=== PATIENT | male | born 1940 | race Caucasian/White ===

== ENCOUNTER 2019-07-22 06:39 | Inpatient (IN) | payer MEDICARE, OTHER ==
[2019-07-13 13:20] LABS: BASOPHILS # (AUTO) 0.1 X10'3 (0-0.2); BASOPHILS % (AUTO) 0.7 % (0-1); EOSINOPHILS # (AUTO) 0.2 X10'3 (0-0.9); EOSINOPHILS % (AUTO) 2.6 % (0-6); LYMPHOCYTES # (AUTO) 1.3 X10'3 (1.1-4.8); LYMPHOCYTES % (AUTO) 17.5 % (21-51); MEAN CORPUSCULAR HEMOGLOBIN 30.1 PG (27.0-31.0); MEAN CORPUSCULAR HGB CONC 33.5 g/dL (33.0-36.5); MEAN CORPUSCULAR VOLUME 89.8 FL (78-98); MEAN PLATELET VOLUME 8.5 FL (7.4-10.4); MONOCYTES # (AUTO) 0.8 X10'3 (0-0.9); MONOCYTES % (AUTO) 9.9 % (2-12); NEUTROPHILS # (AUTO) 5.3 X10'3 (1.8-7.7); NEUTROPHILS % (AUTO) 69.3 % (42-75); PRE OP HEMATOCRIT 44.1 % (42.0-52.0); PRE OP HEMOGLOBIN 14.8 g/dL (14.0-17.9); PRE OP PLATELET COUNT 198 X10'3 (140-440); RED BLOOD COUNT 4.92 X10'6 (4.70-6.10); RED CELL DISTRIBUTION WIDTH 14.6 % (11.5-14.5)
[2019-07-13 13:45] LABS: ALBUMIN 4.3 G/DL (3.4-5.0); ALBUMIN/GLOBULIN RATIO 1.2 (1.1-1.5); ALKALINE PHOSPHATASE 75 IU/L (46-116); BLOOD UREA NITROGEN 29 MG/DL (7-18); BUN/CREATININE RATIO 18.5 (5.4-32.0); CALCIUM 10.2 MG/DL (8.5-10.1); CHLORIDE 106 MMOL/L (99-107); CREATININE 1.57 MG/DL (0.60-1.10); PRE OP ALT 13 U/L (30-65); PRE OP ANION GAP 9 (8-16); PRE OP AST 17 U/L (10-37); PRE OP BILIRUB, TOTAL 0.9 MG/DL (0.0-1.0); PRE OP GLUCOSE 117 MG/DL (70-104); PRE OP SODIUM 145 MMOL/L (135-145); eGFR 43 ML/MIN
[2019-07-13 13:49] LABS: PRE OP POTASSIUM 3.3 MMOL/L (3.4-5.1)
[~2019-07-22] VITALS: Ht 167.6 cm; Wt 88.0 kg
[2019-07-22] VITALS (19 sets, daily range): BP systolic 117–194; BP diastolic 52–91
[~2019-07-22 06:39] MED LIST: ALLO300T2 PO; CLOP75TA33 PO; HYDR25TA4 PO; SIMV-45 PO; cefazolin/dext.iso 2gm/100ml 100 ML IV ONE; famotidine 20mg tablet PO ONE; ringers solution, lacted 1,000 ML IV SCH; tranexamic acid inj. 810 MG in normal saline 100ml IV soln 100 ML IV ONE; vancomycin inj 1,500 MG in normal saline 300ml IV soln IV ONE
[2019-07-22] MEDS ORDERED: ketorolac trometh. 30mg/ml inj. ONE (09:58)
[2019-07-22] MEDS ORDERED: ROPIVAcaine 0.5% (5mg/ml) 30ml vial ONE ×2 (09:58→12:25)
[2019-07-22] MEDS ORDERED: MIDAZolam 5mg/5ml vial ONE (10:13)
[2019-07-22] MEDS ORDERED: fentaNYL/PF 50MCG/1 ML 2ML syringe ONE (10:13)
[2019-07-22] MEDS ORDERED: sevoflurane 250ml liquid IH ONE (10:41)
[2019-07-22] MEDS ORDERED: tranexamic acid inj. 810 MG in normal saline 100ml IV soln 100 ML IV ONE ×2 (11:35→16:50)
[2019-07-22] MEDS ORDERED: ringers solution, lacted 1,000 ML IV SCH (12:17)
[2019-07-22] MEDS ORDERED: ROPIVAcaine 0.2% (10 MG/5 ML) BOLUS INJECTION INTERSCALE PRN (12:20)
[2019-07-22] MEDS ORDERED: HYDROmorphone inj. 0.5 MG/0.5 ML DISP.SYRIN IV PRN ×2 (12:20→12:50)
[2019-07-22] MEDS ORDERED: morphine 4 MG/ML inj SYRINge IV PRN (12:20)
[2019-07-22] MEDS ORDERED: ondansetron/PF 4mg/2ml inj IV PRN ×2 (12:20→12:50)
[2019-07-22] MEDS ORDERED: ondansetron/PF 4mg/2ml inj ONE (12:25)
[2019-07-22] MEDS ORDERED: glycopyrrolate 0.2mg/ml inj ONE (12:25)
[2019-07-22] MEDS ORDERED: propofol inj 20 ML IV ONE (12:25)
[2019-07-22] MEDS ORDERED: dexamethasone sod phosphate 4mg/ml inj. ONE (12:25)
[2019-07-22] MEDS ORDERED: LIDOcaine 1%/PF 5ML 10 MG/ML VIAL ONE (12:25)
[2019-07-22] MEDS ORDERED: magnesium hydroxide 30ml (MOM) UD suspension PO PRN (12:50)
[2019-07-22] MEDS ORDERED: acetaminophen 325mg tablet PO PRN (12:50)
[2019-07-22] MEDS ORDERED: HYDROmorphone 1 mg/ml syringe IV PRN (12:50)
[2019-07-22] MEDS ORDERED: bisacodyl 10mg suppository rectal RC PRN (12:50)
[2019-07-22] MEDS ORDERED: oxyCODONE IR 5mg (immed. release) tablet PO PRN ×2 (12:50)
[2019-07-22] MEDS ORDERED: diphenhydrAMINE 25mg capsule PO PRN ×2 (12:50)
--- NOTE | 2019-07-22 12:50 | NUR ---
Received from OR via BED , accompanied by Anesthesiologist DR QUISPE and report given by Anesthesiolgist. PATIENT WAKING UP, DENIES PAIN, V/S WNL, NEUROVASCULAR CHECKS INTACT, 20G PIV LUE ,RIGHT SHOULDER DRESSING CDI WITH COLD POWDER PACK AND SLING. AWAITING ON-Q DELIVERY FROM PHARMACY
--- NOTE | 2019-07-22 13:19 | NUR ---
received report from [facility] in recovery. Anticipate pt arrival to [facility] soon
[2019-07-22] MEDS ORDERED: hydrALAZINE 20mg/ml inj. IV ONE ×2 (13:40→13:41)
--- NOTE | 2019-07-22 14:00 | NUR ---
PATIENT A&OX4, DENIES PAIN, V/S WNL, NEUROVASCULAR CHECKS INTACT, 20G PIV LUE ,RIGHT SHOULDER DRESSING CDI WITH COLD POWDER PACK AND SLING. ON-Q AT 4ML/HR. PATIENT TAKEN TO [facility] WITH ALL BELONGINGS AND HOOKED UP TO MONITORS IN ROOM AND REPORT GIVEN TO DIRECTOR OF BANDS WHO HAS TAKEN OVER PATIENT CARE.
[2019-07-22] MEDS ORDERED: ROPIVAcaine 0.2%/PF PUMP/bolus 550 ML INTERSCALE SCH (15:30)
[2019-07-22] MEDS: ceFAZolin 1GM/D5W- ADD-VANTAGE 50 ML IV SCH ×2 (16:38→23:56)
[2019-07-22] MEDS: acetaminophen 325mg tablet PO SCH ×2 (16:51→21:01)
[2019-07-22] MEDS: potassium cl 20mEq in 1/2 NS 1,000 ML IV SCH ×2 (17:40→20:47)
[2019-07-22] MEDS ORDERED: vancomycin/NS 1 GM ADD-VANTAGE 250 ML IV SCH (20:00)
[2019-07-22] MEDS ORDERED: sennosides 8.6mg tablet PO SCH (21:00)
[2019-07-23 02:00] VITALS: BP 121/58
[2019-07-23] MEDS: acetaminophen 325mg tablet PO SCH ×2 (02:00→09:39)
[2019-07-23] MEDS: potassium cl 20mEq in 1/2 NS 1,000 ML IV SCH (04:47)
[2019-07-23 06:00] VITALS: BP 126/57
[2019-07-23 06:30] LABS: ANION GAP 8 (8-16); CHLORIDE 108 MMOL/L (99-107); POTASSIUM 4.3 MMOL/L (3.5-5.1); SODIUM 141 MMOL/L (135-145); TOTAL CARBON DIOXIDE 25.1 MMOL/L (24-32)
[2019-07-23 06:46] LABS: BASOPHILS % (AUTO) 0.2 % (0-1); EOSINOPHILS % (AUTO) 0.1 % (0-6); HEMATOCRIT 40.4 % (42.0-52.0); HEMOGLOBIN 13.5 g/dl (14.0-17.9); LYMPHOCYTES % (AUTO) 9.3 % (21-51); MEAN CORPUSCULAR HEMOGLOBIN 30.3 PG (27.0-31.0); MEAN CORPUSCULAR HGB CONC 33.5 g/dL (33.0-36.5); MEAN CORPUSCULAR VOLUME 90.6 FL (78-98); MEAN PLATELET VOLUME 9.7 FL (7.4-10.4); MONOCYTES % (AUTO) 9.2 % (2-12); NEUTROPHILS % (AUTO) 81.2 % (42-75); PLATELET COUNT 204 X10'3 (140-440); RED BLOOD COUNT 4.46 X10'6 (4.70-6.10); RED CELL DISTRIBUTION WIDTH 14.6 % (11.5-14.5); WHITE BLOOD COUNT 11.1 X10'3 (4.5-11.0)
[2019-07-23] MEDS ORDERED: HYDROchlorothiazide 25mg tablet PO SCH (08:00)
[2019-07-23] MEDS ORDERED: allopurinol 300 MG tablet PO SCH (08:00)
[2019-07-23] MEDS ORDERED: clopidogrel 75mg tablet PO SCH (08:00)
[2019-07-23] MEDS ORDERED: aspirin 325mg tablet PO SCH (08:30)
[2019-07-23 09:56] VITALS: BP 150/71
[2019-07-24] MEDS ORDERED: acetaminophen 325mg tablet PO PRN (12:50)
--- NOTE | 2019-07-25 16:21 | NUR ---
Case management DC follow up: spoke to pt and pt spouse, Shellie. reports pt, "feels okay". pt is ambulating as tolerated. has trouble sleeping, r/t discomfort, uses recliner to rest, sleep in. reports a little bit of swelling, agreed to elevate hand w/pillows. verbalizes understanding of meds and why prescribed, taking as ordered, no ase noted. Denies SOB, resp distress, cp, acute general pain, NV, dizziness, abd pain, REYNOLDS. pt remains afebrile. No s/s infection noted. Pt verbalizes understanding of s/s that would warrant 9-/ER visit for evaluation. pt will be calling Dr Monterroso office regarding after care instructions not being sent w/DC packet. Educated pt on basics for aftercare. pt does not feel comfortable removing pain pump from pt "neck" and will be going into Dr Monterroso office to have removed tomorrow 07/26/2019. pt did not know where to place ice pack, called office and was directed where to place ice pack through opening of the shoulder wrap/sling. No education/demonstration provided at DC per pt and pt spouse. No aftercare instructions printed and placed in DC packet. pt and spouse were very nice and just needed some guidance and support.
== END 2019-07-23 11:24 | disposition home or self-care (01) | DRG 483 ==
LOC: PAS IN 06:39 → EDSTATUS 11:00 → ORTHO 4S 14:05
PROVIDERS: ADMIT Orthopaedic Surgery; ATTEND Orthopaedic Surgery
PROC: 0LS30ZZ Reposition Right Upper Arm Tendon, Open Approach (ICD-10-PCS; 2019-07-22)
PROC: 3E0T3BZ Introduction of Anesthetic Agent into Peripheral Nerves and Plexi, Percutaneous Approach (ICD-10-PCS; 2019-07-22)
PROC: 0RRJ00Z Replacement of Right Shoulder Joint with Reverse Ball and Socket Synthetic Substitute, Open Approach (ICD-10-PCS; principal; 2019-07-22 10:41)
DX: M75.121 Complete rotator cuff tear or rupture of right shoulder, not specified as traumatic (principal); D62 Acute posthemorrhagic anemia; M25.511 Pain in right shoulder; M19.011 Primary osteoarthritis, right shoulder; M10.9 Gout, unspecified; I10 Essential (primary) hypertension; I25.10 Atherosclerotic heart disease of native coronary artery without angina pectoris; M65.811 Other synovitis and tenosynovitis, right shoulder; Z95.5 Presence of coronary angioplasty implant and graft; Z79.899 Other long term (current) drug therapy
CPT/HCPCS: 36415; 80051; 80053; 82948; 85025; 87081; 93005; 97110; 97161; 97530; A4215; A4565; A4618; A7000; C1776; G0378; J0360; J0690; J1100; J1885; J2250; J2405; J2704; J2795; J3010; J3370; J3480; J3490; J7120

== ENCOUNTER 2021-05-24 05:25 | Day surgery (SDC) | payer MEDICARE, OTHER ==
[2021-05-17 15:48] LABS: BASOPHILS # (AUTO) 0.1 X10'3 (0-0.2); BASOPHILS % (AUTO) 1.1 % (0-1); EOSINOPHILS # (AUTO) 0.1 X10'3 (0-0.9); EOSINOPHILS % (AUTO) 2.1 % (0-6); LYMPHOCYTES # (AUTO) 1.1 X10'3 (1.1-4.8); LYMPHOCYTES % (AUTO) 22.9 % (21-51); MEAN CORPUSCULAR HEMOGLOBIN 30.5 PG (27.0-31.0); MEAN CORPUSCULAR HGB CONC 33.4 g/dL (33.0-36.5); MEAN CORPUSCULAR VOLUME 91.3 FL (78-98); MEAN PLATELET VOLUME 8.7 FL (7.4-10.4); MONOCYTES # (AUTO) 0.7 X10'3 (0-0.9); MONOCYTES % (AUTO) 15.5 % (2-12); NEUTROPHILS # (AUTO) 2.7 X10'3 (1.8-7.7); NEUTROPHILS % (AUTO) 58.4 % (42-75); PRE OP HEMATOCRIT 38.4 % (42.0-52.0); PRE OP HEMOGLOBIN 12.8 g/dL (14.0-17.9); PRE OP PLATELET COUNT 196 X10'3 (140-440); RED CELL DISTRIBUTION WIDTH 14.6 % (11.5-14.5)
[2021-05-17 16:01] LABS: PRE OP PROTIME 10.5 SECONDS (9.0-12.0)
[2021-05-17 16:17] LABS: ALBUMIN 3.9 G/DL (3.4-5.0); ALBUMIN/GLOBULIN RATIO 1.1 (1.1-1.5); ALKALINE PHOSPHATASE 76 IU/L (46-116); BLOOD UREA NITROGEN 26 MG/DL (7-18); BUN/CREATININE RATIO 16.7 (5.4-32.0); CALCIUM 9.1 MG/DL (8.5-10.1); CHLORIDE 103 MMOL/L (99-107); CREATININE 1.56 MG/DL (0.60-1.10); PRE OP ALT 16 U/L (30-65); PRE OP ANION GAP 8 (8-16); PRE OP AST 30 U/L (10-37); PRE OP BILIRUB, TOTAL 0.9 MG/DL (0.0-1.0); PRE OP GLUCOSE 96 MG/DL (70-104); PRE OP POTASSIUM 4.5 MMOL/L (3.4-5.1); PRE OP SODIUM 137 MMOL/L (135-145); TOTAL CARBON DIOXIDE 25.9 MMOL/L (24-32); TOTAL PROTEIN 7.4 G/DL (6.4-8.2); eGFR 43 ML/MIN
[2021-05-24] VITALS (20 sets, daily range): BP systolic 118–180; BP diastolic 37–85
[~2021-05-24] VITALS: Ht 170.2 cm; Wt 84.0 kg
[~2021-05-24 05:25] MED LIST changes: -ALLO300T2 PO; +ALLO300T8 PO; +ASPI81TA52 PO; -CLOP75TA33 PO; -cefazolin/dext.iso 2gm/100ml 100 ML IV ONE; -famotidine 20mg tablet PO ONE; -tranexamic acid inj. 810 MG in normal saline 100ml IV soln 100 ML IV ONE; -vancomycin inj 1,500 MG in normal saline 300ml IV soln IV ONE
[2021-05-24] MEDS ORDERED: cefazolin/dext.iso 2gm/50ml IV ONE (05:30)
[2021-05-24] MEDS ORDERED: famotidine 20mg tablet PO ONE (05:30)
[2021-05-24] MEDS ORDERED: midazolam 1 mg/ML 2ml injection ONE (07:28)
[2021-05-24] MEDS ORDERED: fentaNYL/PF 50MCG/1 ML 2ML syringe ONE (07:28)
[2021-05-24] MEDS ORDERED: glycopyrrolate 0.2mg/ml inj ONE (08:21)
[2021-05-24] MEDS ORDERED: diphenhydrAMINE 50 mg/ml inj ONE (08:21)
[2021-05-24] MEDS ORDERED: HYDROmorphone/PF 0.2 MG/ML SYRINGE IV PRN ×2 (08:30)
[2021-05-24] MEDS ORDERED: morphine 2 MG/ML inj. syringe IV PRN (08:30)
[2021-05-24] MEDS ORDERED: ondansetron/PF 4mg/2ml inj IV PRN ×2 (08:30→09:45)
[2021-05-24] MEDS ORDERED: ringers solution, lacted 1,000 ML IV SCH (08:30)
[2021-05-24] MEDS ORDERED: hydrALAZINE 20mg/ml inj. IV ONE (08:59)
--- NOTE | 2021-05-24 09:28 | NUR ---
Received from OR via [facility], accompanied by Anesthesiologist BRITTANEY and report given by Anesthesiolgist. PATIENT WITH 3 WAY DAWN IRRIGATION CATHETER. PATIENT WITH PINK URINE PRESENT IN CATHETER. DENIES PAIN 2' SPINAL - L1 SENSATION LEVEL AT THIS TIME. WILL CONTINUE TO ASSESS. Addendum: 05/24/21 at 0952 by Rl Rios RN, RN Amended: Links added.
[2021-05-24] MEDS ORDERED: oxybutynin 5mg tablet PO PRN (09:45)
[2021-05-24] MEDS ORDERED: HYDROcodone/acetaminophen 5mg/325mg tablet PO PRN ×2 (09:45)
[2021-05-24] MEDS ORDERED: opium/belladonna alkaloids No. 15A 30mg rectal suppository RC PRN (09:45)
--- NOTE | 2021-05-24 11:08 | NUR ---
PATIENT HAS MET ALL CRITERIA FOR TRANSFER TO THE SURGICAL FLOOR. VSS. DRESSINGS INTACT. BED LOW, CALL LIGHT PRESENT AND 2 RAILS UP. RN PRESENT TO ACCEPT CARE OF PATIENT AND REPORT HAS BEEN CALLED. ALL QUESTIONS ANSWERED TO ACCEPTING TAD CONTEH. SPINAL STILL INTACT. ROLLED AND POSTIONED IN BED WITH 3 PERSON ASSIST. SKIN CHECK WAS CLEAR AND VSS. DENIES PAIN AND URINE STILL PINK IN COLOR IN CATHETER. CARE TURNED OVER TO TAD CONTEH WHO WAS PRESENT AT BEDSIDE TO ASSIST IN TRANSFER OF CARE. Addendum: 05/24/21 at 1131 by Rl Hernandez - TAD RN Amended: Links added.
[2021-05-24] MEDS: potassium cl 20mEq in 1/2 NS 1,000 ML IV SCH ×2 (11:47→19:45)
--- NOTE | 2021-05-24 18:23 | NUR ---
Problems reprioritized. Patient report given, questions answered & plan of care reviewed with TAD PEARSON AND TAD CORMIER.
--- NOTE | 2021-05-24 18:39 | NUR ---
Patient in room [facility]. I have received report from Gini MISHRA and had the opportunity to ask questions and assume patient care.
--- NOTE | 2021-05-24 18:48 | NUR ---
Patient in room [facility]. I have received report from WILMER MISHRA and had the opportunity to ask questions and assume patient care.
[2021-05-25] VITALS: BP 160/60
[2021-05-25] MEDS: potassium cl 20mEq in 1/2 NS 1,000 ML IV SCH (02:11)
[2021-05-25 05:50] LABS: BASOPHILS # (AUTO) 0.1 X10'3 (0-0.2); BASOPHILS % (AUTO) 1.1 % (0-1); EOSINOPHILS # (AUTO) 0.2 X10'3 (0-0.9); EOSINOPHILS % (AUTO) 3.7 % (0-6); HEMATOCRIT 34.8 % (42.0-52.0); HEMOGLOBIN 11.7 g/dl (14.0-17.9); LYMPHOCYTES % (AUTO) 18.9 % (21-51); MEAN CORPUSCULAR HEMOGLOBIN 30.5 PG (27.0-31.0); MEAN CORPUSCULAR HGB CONC 33.6 g/dL (33.0-36.5); MEAN CORPUSCULAR VOLUME 90.7 FL (78-98); MEAN PLATELET VOLUME 8.6 FL (7.4-10.4); MONOCYTES # (AUTO) 0.8 X10'3 (0-0.9); MONOCYTES % (AUTO) 14.3 % (2-12); NEUTROPHILS # (AUTO) 3.4 X10'3 (1.8-7.7); PLATELET COUNT 164 X10'3 (140-440); RED BLOOD COUNT 3.84 X10'6 (4.70-6.10); WHITE BLOOD COUNT 5.5 X10'3 (4.5-11.0)
[2021-05-25 06:05] LABS: ANION GAP 7 (8-16); BLOOD UREA NITROGEN 13 MG/DL (7-18); BUN/CREATININE RATIO 9.6 (5.4-32.0); CALCIUM 8.8 MG/DL (8.5-10.1); CHLORIDE 107 MMOL/L (99-107); CREATININE 1.35 MG/DL (0.60-1.10); GLUCOSE 98 MG/DL (70-104); POTASSIUM 4.4 MMOL/L (3.5-5.1); SODIUM 141 MMOL/L (135-145); TOTAL CARBON DIOXIDE 27.2 MMOL/L (24-32); eGFR 51 ML/MIN
--- NOTE | 2021-05-25 06:22 | NUR ---
Problems reprioritized. Patient report given, questions answered & plan of care reviewed with JUAN ALBERTO MISHRA.
--- NOTE | 2021-05-25 06:53 | NUR ---
Patient in room [facility]. I have received report from CASA MISHRA and had the opportunity to ask questions and assume patient care.
[2021-05-25 07:35] VITALS: BP 172/71
[2021-05-25] MEDS ORDERED: atorvastatin 20mg tablet PO SCH (08:00)
[2021-05-25] MEDS ORDERED: allopurinol 300 MG tablet PO SCH (08:00)
[2021-05-25] MEDS ORDERED: HYDROchlorothiazide 25mg tablet PO SCH (08:00)
[2021-05-25] MEDS ORDERED: DOCU-148 PO (10:24)
[2021-05-25] MEDS ORDERED: HYDR-3965 PO (10:24)
--- NOTE | 2021-05-25 12:55 | NUR ---
PT DISCHARGED IN STABLE CONDITION. LEFT FACILITY WITH FRIEND. IV DC CANULA INTACT. FC IN PLACE. DAWN INSTRUCTIONS GIVEN. ALL QUESTIONS ANSWERED. FOLLOW UP INSTRUCTIONS GIVEN, ALL BELONGINGS IN HAND. Addendum: 05/25/21 at 1621 by Ada Rosas RN Amended: Links added.
[2021-05-26] MEDS ORDERED: docusate sod 250mg capsule PO SCH (08:00)
== END 2021-05-25 12:55 | disposition home or self-care (01) ==
LOC: PAS 05:25 → EDSTATUS 07:30 → SUR 3N 09:50 → PAS 05-25 12:55
PROVIDERS: ATTEND Urology
DX: D49.4 Neoplasm of unspecified behavior of bladder (principal); C67.2 Malignant neoplasm of lateral wall of bladder; C67.5 Malignant neoplasm of bladder neck; N40.1 Benign prostatic hyperplasia with lower urinary tract symptoms; I10 Essential (primary) hypertension; M10.9 Gout, unspecified; M19.90 Unspecified osteoarthritis, unspecified site; Z87.891 Personal history of nicotine dependence; Z96.653 Presence of artificial knee joint, bilateral; Z96.611 Presence of right artificial shoulder joint; Z98.890 Other specified postprocedural states; Z95.5 Presence of coronary angioplasty implant and graft; Z20.822 Contact with and (suspected) exposure to COVID-19; Z79.899 Other long term (current) drug therapy; Z79.01 Long term (current) use of anticoagulants
CPT/HCPCS: 36415; 52240; 71046; 80048; 80053; 82948; 85025; 85610; 85730; 93005; J0360; J0690; J1200; J2250; J3010; J3480; J3490; J7120; U0003; U0005; Z7506; Z7508; Z7512; 88305; 88342; A4346; A4618; A7000; G0378